=== PATIENT | female | born 1960 | race Caucasian/White ===

== ENCOUNTER → 2017-12-19 | Outpatient (CLI) | payer BC ==
[~2017-12-19] MED LIST: ALPR.5T PO; ASPI1TAB PO; MULT-608 PO; SRTR100T PO
--- NOTE | 2017-12-19 15:59 | Diagnostic Imaging Report ---
PROCEDURE: CT sinuses without contrast TECHNIQUE: Multiple contiguous axial images were obtained through the sinuses without the use of intravenous contrast. Coronal and sagittal reformations were then performed. INDICATION: Headaches for six months. FINDINGS: The frontal sinus is clear. Ethmoid air cells and sphenoid sinus are clear. Bilateral maxillary sinuses are clear. No mucosal thickening or air-fluid levels are seen. The ostiomeatal units are patent bilaterally. Nasal septum is midline. The mastoids are well aerated. Postsurgical changes of aneurysm repair are identified at the [place]. IMPRESSION: No evidence of sinusitis. Dictated by: Dictated on workstation # [id number]
== END ==
LOC: RAD 15:26
PROVIDERS: ATTEND Otolaryngology Otolaryngology/Facial Plastic Surgery
DX: R51 Headache (principal); Z86.79 Personal history of other diseases of the circulatory system
CPT/HCPCS: 70486

== ENCOUNTER → 2020-01-25 | Outpatient (CLI) | payer BC ==
--- NOTE | 2020-01-25 08:24 | Diagnostic Imaging Report ---
INDICATION: Follow-up fracture COMPARISON: None available TECHNIQUE: 3 radiographs of right ankle dated 01/25/2020 FINDINGS: Essentially nondisplaced fracture through the tip of the lateral malleolus is identified. Persisting fracture plane is noted. No dense osseous bridging. No additional acute fracture. No dislocation. The talar dome is unremarkable. Ankle mortise is symmetric. Post surgical changes within the distal 1st metatarsal. No suspicious radiopaque foreign body. IMPRESSION: Nondisplaced fracture involving the tip of the lateral malleolus. Given appearance, this is favored to be subacute in nature. Dictated by: Dictated on workstation # [id number]
== END ==
LOC: RAD FS 08:02
PROVIDERS: ATTEND Nurse Practitioner
DX: S82.831D Other fracture of upper and lower end of right fibula, subsequent encounter for closed fracture with routine healing (principal); Z98.890 Other specified postprocedural states
CPT/HCPCS: 73610

== ENCOUNTER → 2020-06-01 | Outpatient (CLI) | payer BC ==
--- NOTE | 2020-06-01 10:15 | Diagnostic Imaging Report ---
INDICATION: Chronic neck pain. Time of exam 9:50 AM Three-view cervical spine were obtained. There is slight reversal normal cervical lordotic curvature. There is significant degenerative disc disease at C5-C6 and C6-C7 levels with disc space narrowing and marginal spurring. No fractures are identified. Prevertebral tissues are normal. Odontoid is intact. IMPRESSION: Lower cervical spondylosis. No acute bony abnormality is detected. Dictated by: Dictated on workstation # [id number]
== END ==
LOC: RAD FS 09:34
PROVIDERS: ATTEND Chiropractor
DX: M47.812 Spondylosis without myelopathy or radiculopathy, cervical region (principal); R51 Headache
CPT/HCPCS: 72040

== ENCOUNTER 2020-07-02 17:28 | Emergency (ER) | payer BC ==
[~2020-07-02] VITALS: Ht 175.2 cm; Wt 66.0 kg
--- OUTSIDE RECORDS SUMMARY | 2020-07-02 17:34 | XMS REPORT | Continuity of Care Document ---
Author Organization Unknown Address Unknown Phone Unavailable Allergies Active Description Code Type Severity Reaction Onset Reported/Identified Relationship to Patient Clinical Status Yes No Known Drug Allergies [id number] Drug Allergy Unknown N/A 10/06/2012 Medications There is no data. Problems Date Dx Coded Attending Type Code Diagnosis Diagnosed By 12/22/2017 TREY KEENAN MD Ot R51 HEADACHE 12/22/2017 TREY KEENAN MD Ot Z86.79 PERSONAL HISTORY OF OTHER DISEASES OF 12/31/2017 TREY KEENAN MD Ot R51 HEADACHE 12/31/2017 TREY KEENAN MD Ot Z86.79 PERSONAL HISTORY OF OTHER DISEASES OF 02/10/2020 CHARANJIT NAVARRO Ot S82.831D OTH FX UPR LOW END R FIBULA, SUBS FOR 02/10/2020 CHARANJIT NAVARRO YOUTH SPECIALIST Ot Z98.890 OTHER SPECIFIED POSTPROCEDURAL STATES 05/03/2020 TREY KEENAN MD Ot R51 HEADACHE 05/03/2020 TREY KEENAN MD P Ot Z86.79 PERSONAL HISTORY OF OTHER DISEASES OF 05/03/2020 CHARANJIT NAVARRO Ot S82.831D OTH FX UPR LOW END R FIBULA, SUBS FOR 05/03/2020 CHARANJIT NAVARRO Ot Z98.890 OTHER SPECIFIED POSTPROCEDURAL STATES 05/04/2020 TREY KEENAN MD Ot R51 HEADACHE 05/04/2020 TREY KEENAN MD P Ot Z86.79 PERSONAL HISTORY OF OTHER DISEASES OF TH 05/04/2020 CHARANJIT NAVARRO Ot S82.831D OTH FX UPR LOW END R FIBULA, SUBS FOR 05/04/2020 CHARANJIT NAVARRO Ot Z98.890 OTHER SPECIFIED POSTPROCEDURAL STATES 05/12/2020 TREY KEENAN MD Ot R51 HEADACHE 05/12/2020 TREY KEENAN MD P Ot Z86.79 PERSONAL HISTORY OF OTHER DISEASES OF 05/12/2020 CHARANJIT NAVARRO YOUTH SPECIALIST Ot S82.831D OTH FX UPR LOW END R FIBULA, SUBS FOR 05/12/2020 CHARANJIT NAVARRO Ot Z98.890 OTHER SPECIFIED POSTPROCEDURAL STATES 06/01/2020 TREY KEENAN MD Ot R51 HEADACHE 06/01/2020 TREY KEENAN MD Ot Z86.79 PERSONAL HISTORY OF OTHER DISEASES OF TH 06/01/2020 CHARANJIT NAVARRO Ot S82.831D OTH FX UPR LOW END R FIBULA, SUBS FOR 06/01/2020 CHARANJIT NAVARRO Ot Z98.890 OTHER SPECIFIED POSTPROCEDURAL STATES 06/06/2020 LONG DC, BERNA S Ot M47.812 SPONDYLOSIS W/O MYELOPATHY OR RADICULOPA 06/06/2020 LONG DC, BERNA S Ot R51 HEADACHE Procedures There is no data. Results There is no data. Encounters ACCT No. Visit Date/Time Discharge Status Pt. Type Provider Facility Loc./Unit Complaint [id number] 06/01/2020 09:34:00 020 23:59:59 CLS Outpatient BERNA FIGUEROA DC [facility] FS NECK PAIN WITH HEADACHE [id number] 01/25/2020 08:02:00 020 23:59:59 CLS Outpatient CHARANJIT NAVARRO [facility] FS S82.831A [id number] 12/19/2017 15:26:00 018 23:59:59 CLS Outpatient RTEY KEENAN MD [facility] HEADACHES, HX BRAIN ANEURYSM,SINUSITIS
[2020-07-02] MEDS ORDERED: fentaNYL INJECTION 100 MCG/2 ML AMP IVP ONE (17:45)
[2020-07-02] MEDS ORDERED: ONDANSETRON 4 MG/2 ML (SDV) Z0FRAN IVP ONE (17:45)
[2020-07-02] MEDS ORDERED: diphenhydrAMINE 50 MG/ML INJ (BENADRYL) IVP ONE (17:45)
--- NOTE | 2020-07-02 17:49 | ED Headache ---
General Chief Complaint: Head/Cervical Problems Stated Complaint: HEADACHE;TINGLING TOES History of Present Illness Date Seen by Provider: Jul 02, 2020 Time Seen by Provider: 17:45 Initial Comments 59-year-old female states she has a history of a cerebral aneurysm status post coil placement she does get migraines sometimes associated with nausea and vomiting last night she developed a bilateral frontal and vertex headache with nausea and vomiting she's vomited 4 times there's een no fall or injury she has not had fever or other active illness she has used Maxalt and a nasal spray for the [place] without significant improvement she went to the clinic and was asked about numbness or tingling recalls her left toes were tingling last night so there was concern about possible stroke and she was sent to the ER grossly it would appear the patient has no neurologic deficit is not in any acute distress alert and oriented gait normal (DELFIN WHITE MD) Allergies and Home Medications Allergies Coded Allergies: No Known Drug Allergies (Unverified , 10/06/12) Home Medications Alprazolam 0.5 Mg Tablet, 1 TAB PO NEEDED, (Reported) FOR ANXIETY Aspirin/Acetaminophen/Caffeine 1 Tab Tablet, 1 TAB PO NEEDED, (Reported) Multivitamins 1 Tab Tablet, 1 TAB PO DAILY, (Reported) Sertraline Hcl 100 Mg Tablet, 150 MG PO HS, (Reported) Patient Home Medication List Home Medication List Reviewed: Yes (DELFIN WHITE MD) Review of Systems Review of Systems Constitutional: no symptoms reported; No fever Eyes: No Symptoms Reported Ears, Nose, Mouth, Throat: no symptoms reported Respiratory: no symptoms reported Cardiovascular: no symptoms reported Gastrointestinal: nausea, vomiting Genitourinary: no symptoms reported Musculoskeletal: other ([place] only) Skin: no symptoms reported (DELFIN WHITE MD) Past Vrdkoyo-Yslnzw-Tspfil Hx Past Medical History Reproductive Disorders: No (DELFIN WHITE MD) Physical Exam Vital Signs Vital Signs - First Documented 07/02/20 17:30 Temp 36.3 Pulse 68 Resp 16 B/P (MAP) 136/82 (100) Pulse Ox 99 O2 Delivery Room Air (ANISH ISABEL JR, MD) Vital Signs Capillary Refill : (DELFIN WHITE MD) Height, Weight, BMI Height: '" Weight: lbs. oz. kg; BMI Method: General Appearance: no apparent distress HEENT: TMs normal, pharynx normal Neck: supple, other (no hint of meningismus) Cardiovascular: regular rate, rhythm Respiratory: lungs clear Gastrointestinal: non tender, soft Extremities: normal inspection Psychiatric: alert, oriented x 3 Motor/Sensory: no motor deficit, no sensory deficit, other (no objective finding of any kind of neurologic abnormality) (DELFIN WHITE MD) Progress/Results/Core Measures Results/Orders Medications Given in ED Current Medications Medications Dose Ordered Sig/Kody Route Start Time Stop Time Status Last Admin Dose Admin Diphenhydramine HCl 25 mg ONCE ONCE IVP 07/02/20 17:45 07/02/20 17:46 DC 07/02/20 18:01 25 MG Fentanyl Citrate 50 mcg ONCE ONCE IVP 07/02/20 17:45 07/02/20 17:46 DC 07/02/20 18:01 50 MCG Ondansetron HCl 4 mg ONCE ONCE IVP 07/02/20 17:45 07/02/20 17:46 DC 07/02/20 18:00 4 MG (ANISH ISABEL JR, MD) Vital Signs/I&O 07/02/20 17:30 Temp 36.3 Pulse 68 Resp 16 B/P (MAP) 136/82 (100) Pulse Ox 99 O2 Delivery Room Air (ANISH ISABEL JR, MD) Progress Progress Note : Progress Note CT head pending Will give IV (fentanyl for now as it might be best to avoid Toradol until we know the CT is normal) Isabel (DELFIN WHITE MD) Transfer of Care Time: 18:00 Care transferred to: Dr. Isabel to seem care at shift change CT head pending (DELFIN WHITE MD) Departure Communication (Admissions) Patient improved ridicule home. (ANISH ISABEL JR, MD) Impression Primary Impression: Migraine Qualified Codes: G43.909 - Migraine, unspecified, not intractable, without status migrainosus Disposition: HOME, SELF-CARE Condition: Stable Departure-Patient Inst. Referrals: DREW RIVERA MD (PCP/Family) Primary Care Physician Patient Instructions: Headache, Adult (DC) DELFIN WHITE MD Jul 02, 2020 17:49 ANISH ISABEL JR, MD Jul 02, 2020 18:37
--- NOTE | 2020-07-02 18:15 | Diagnostic Imaging Report ---
INDICATION: Migraine headache since yesterday, history of aneurysm coiling. TECHNIQUE: Multiple contiguous axial images were obtained through the brain without the use of intravenous contrast. Auto Exposure Controls were utilized during the CT exam to meet ALARA standards for radiation dose reduction. COMPARISON: There is no previous study for comparison. FINDINGS: There are no extra-axial fluid collections. No intracranial hemorrhage. No intracranial mass or mass effect. No midline shift. The ventricles are normal in size and position. Prior embolization coils are visualized over the left side of the [place] and carotid siphon. There is no acute appearing intracranial abnormality. Calvarial windows show no fracture. Visualized portions of the mastoid air cells and sinuses are unremarkable. IMPRESSION: Evidence of previous coil embolization with coils overlying the left side of the [place] and carotid siphon. No acute hemorrhage, mass effect or acute appearing finding. Dictated by: Dictated on workstation # [id number]
[2020-07-02 18:43] VITALS: BP 136/82
== END 2020-07-02 18:39 | disposition home or self-care (01) ==
LOC: EDUNIT# 17:28 → ER FS 17:30
DX: G43.909 Migraine, unspecified, not intractable, without status migrainosus (principal); Z79.82 Long term (current) use of aspirin; Z79.899 Other long term (current) drug therapy; R20.2 Paresthesia of skin; Z86.79 Personal history of other diseases of the circulatory system
CPT/HCPCS: 70450

== ENCOUNTER → 2021-05-01 | Outpatient (CLI) | payer BC ==
--- NOTE | 2021-05-01 12:33 | Diagnostic Imaging Report ---
INDICATION: Fracture. COMPARISON: None available. TECHNIQUE: Three radiographs of the left knee dated 05/01/2021. FINDINGS: No acute fracture or dislocation. No destructive osseous process. Minimal medial joint space narrowing. Small knee joint effusion. Prepatellar soft tissue swelling. Lucencies are noted associated with the undersurface of the patella. IMPRESSION: No acute osseous abnormality with mild degenerative changes. Lucencies associated with undersurface of the patella, likely related to subchondral cyst formation. Prepatellar and infrapatellar soft tissue swelling with a small knee joint effusion present. Should symptoms persist, further evaluation with MRI of the knee could be considered. Dictated by: Dictated on workstation # [id number]
== END ==
LOC: RAD FS 09:28
PROVIDERS: ATTEND Nurse Practitioner
DX: S82.035A Nondisplaced transverse fracture of left patella, initial encounter for closed fracture (principal); M17.12 Unilateral primary osteoarthritis, left knee; M25.462 Effusion, left knee; X58.XXXA Exposure to other specified factors, initial encounter
CPT/HCPCS: 73562

== ENCOUNTER → 2021-05-22 | Outpatient (CLI) | payer BC ==
--- NOTE | 2021-05-22 10:37 | Diagnostic Imaging Report ---
INDICATION: Knee pain. Injury. Fracture follow-up. COMPARISON: 05/01/2021 FINDINGS: 3 radiographic views of left knee were obtained. Again identified are prominent subchondral lucencies of the patella. These are again favored to be on a degenerative basis and pharmaceutical specialty representative subchondral cystic formation. No definite acute patellar fracture is seen. Remaining osseous structures are intact. Joint spaces are maintained. Note is again made of small suprapatellar joint effusion. IMPRESSION: 1. No new acute fracture or dislocation left knee. 2. Redemonstration subchondral lucencies in the articular surface of the patella. Again, these are favored to be degenerative in nature. Dictated by: Dictated on workstation # [id number]
== END ==
LOC: RAD FS 09:28
PROVIDERS: ATTEND Nurse Practitioner
DX: S82.035D Nondisplaced transverse fracture of left patella, subsequent encounter for closed fracture with routine healing (principal); X58.XXXD Exposure to other specified factors, subsequent encounter
CPT/HCPCS: 73562

== ENCOUNTER 2022-04-18 21:35 | Emergency (ER) | payer BC ==
[2022-04-18] MEDS ORDERED: diphenhydrAMINE 50 MG/ML INJ (BENADRYL) IM ONE (21:45)
[2022-04-18] MEDS ORDERED: KETOROLAC 30 MG/ML VIAL IM ONE (21:45)
[2022-04-18] MEDS ORDERED: DROPERIDOL 5 MG/2 ML (INAPSINE) ED ONLY! IM ONE (21:45)
[2022-04-18] MEDS ORDERED: PROCHLORPERAZINE 10 MG/2ML INJ (COMPAZINE) IM ONE (21:45)
[2022-04-18] MEDS ORDERED: ACETAMINOPHEN 500 MG TAB (TYLENOL) PO ONE (21:45)
--- NOTE | 2022-04-18 21:50 | ED Headache ---
General Chief Complaint: Head/Cervical Problems Stated Complaint: HADACHE/NAUSEA Nursing Triage Note: Pt complaining of a migraine that started Friday night. Pt seen PCP today and was given 3 shots. Pt states the medications helped for a little while but now her migraine is back Source: patient Exam Limitations: no limitations History of Present Illness Date Seen by Provider: April 18, 2022 Time Seen by Provider: 21:39 Initial Comments 61-year-old female with past medical history of chronic migraines coming in due to one of her chronic migraines. She says they typically happen roughly 4 times a month, or in the front of her head, this months consistent with that. This 1 started on Friday, slow in onset, she presented to her PCP earlier today and she got a couple injections IM which did help somewhat, but it continues. Denies any neck stiffness, fever, vision changes, voice changes, weakness, numbness, or any other concerns. She is otherwise denying any other acute complaints. Denies any head trauma as well. Allergies and Home Medications Allergies Coded Allergies: No Known Drug Allergies (Unverified , 10/06/12) Patient Home Medication List Home Medication List Reviewed: Yes Alprazolam (Xanax) 0.5 Mg Tablet, 1 TAB PO NEEDED, (Reported) Entered as Reported by: MATA AQUINO on 10/06/12938 Aspirin/Acetaminophen/Caffeine (Excedrin Caplet) 1 Tab Tablet, 1 TAB PO NEEDED, (Reported) Entered as Reported by: MATA AQUINO on 10/06/12938 Multivitamins (Multiple Vitamin) 1 Tab Tablet, 1 TAB PO DAILY, (Reported) Entered as Reported by: MATA AQUINO on 10/06/12938 Sertraline Hcl (Zoloft) 100 Mg Tablet, 150 MG PO HS, (Reported) Entered as Reported by: MATA AQUINO on 10/06/12938 Review of Systems Review of Systems Constitutional: No chills, No fever Eyes: Denies Blurred Vision Ears, Nose, Mouth, Throat: no symptoms reported Cardiovascular: no symptoms reported Gastrointestinal: no symptoms reported Genitourinary: no symptoms reported Musculoskeletal: no symptoms reported Skin: no symptoms reported Psychiatric/Neurological: Headache All Other Systems Reviewed Negative Unless Noted: Yes Past Oqwpdsf-Xwfprf-Ndykyb Hx Patient Social History Tobacco Use?: No Substance use?: No Alcohol Use?: No Seasonal Allergies Seasonal Allergies: No Past Medical History Surgeries: Yes (endovascular coiling for aneurysm) Hysterectomy, Tonsillectomy Respiratory: No Cardiac: Yes Aneurysm, High Cholesterol Neurological: Yes Headaches /Migraines Reproductive Disorders: No Genitourinary: No Gastrointestinal: No Musculoskeletal: No Endocrine: No HEENT: No Cancer: No Psychosocial: Yes Sleep Difficulties, Anxiety, Depression Integumentary: No Blood Disorders: No Physical Exam Vital Signs Vital Signs - First Documented 04/18/22 21:41 Temp 36.5 Pulse 78 Resp 18 B/P (MAP) 143/68 (93) Pulse Ox 98 O2 Delivery Room Air Capillary Refill : Less Than 3 Seconds Height, Weight, BMI Height: '" Weight: lbs. oz. kg; 21.00 BMI Method: General Appearance: WD/WN, no apparent distress HEENT: PERRL/EOMI, normal ENT inspection, pharynx normal Neck: non-tender, full range of motion, supple, normal inspection Cardiovascular: regular rate, rhythm, no edema, no murmur Respiratory: chest non-tender, lungs clear, normal breath sounds, no respiratory distress, no accessory muscle use Gastrointestinal: normal bowel sounds, non tender, soft; No distended, No gua rding, No rebound Back: normal inspection Extremities: normal range of motion, non-tender, normal inspection, no pedal edema, no calf tenderness, normal capillary refill Psychiatric: alert, oriented x 3 [place] Nerves: normal hearing, normal speech, PERRL Coordination/Gait: normal finger to nose, normal gait Motor/Sensory: no motor deficit, no sensory deficit, no pronator drift Skin: normal color, warm/dry Lymphatic: no adenopathy Progress/Results/Core Measures Results/Orders My Orders Orders - MARIUM GRACE MD Ketorolac Injection (Toradol Injection) (04/18/22 21:45) Diphenhydramine Injection (Benadryl Inje (04/18/22 21:45) Prochlorperazine Injection (Compazine In (04/18/22 21:45) Dexamethasone Oral Soln (Ed) (Decadron I (04/18/22 21:45) Acetaminophen Tablet (Tylenol Tablet) (04/18/22 21:45) Droperidol Inj (Ed Only) (Inapsine Inj ( (04/18/22 21:45) Dexamethasone Tablet (Decadron Tablet) (04/18/22 22:02) Medications Given in ED Current Medications Medications Dose Ordered Sig/Kody Route Start Time Stop Time Status Last Admin Dose Admin Acetaminophen 1,000 mg ONCE ONCE PO 04/18/22 21:45 04/18/22 21:49 DC 04/18/22 22:08 1,000 MG Dexamethasone 6 mg STK-MED ONCE .ROUTE 04/18/22 22:02 04/18/22 22:04 DC 04/18/22 22:09 6 MG Diphenhydramine HCl 50 mg ONCE ONCE IM 04/18/22 21:45 04/18/22 21:49 DC 04/18/22 22:10 50 MG Droperidol 2.5 mg ONCE ONCE IM 04/18/22 21:45 04/18/22 21:49 DC 04/18/22 22:09 2.5 MG Ketorolac Tromethamine 15 mg ONCE ONCE IM 04/18/22 21:45 04/18/22 21:49 DC 04/18/22 22:09 15 MG Prochlorperazine Edisylate 10 mg ONCE ONCE IM 04/18/22 21:45 04/18/22 21:49 DC 04/18/22 22:09 10 MG Vital Signs/I&O 04/18/22 04/18/22 21:41 22:19 Temp 36.5 36.5 Pulse 78 78 Resp 18 18 B/P (MAP) 143/68 (93) 143/68 Pulse Ox 98 98 O2 Delivery Room Air Room Air Blood Pressure Mean: 93 Progress Progress Note : Progress Note 61-year-old female with above history coming in due to one of her chronic migraines. ABCs were intact and vital signs were stable on presentation. Physical exam reassuring including a complete neurologic exam being normal. She was given an IM cocktail of medicines for headache. She is feeling better and would like to go home. I believe she is stable for discharge with outpatient follow-up. She was sent home with strict return precautions Departure Impression Primary Impression: Migraine Qualified Codes: G43.001 - Migraine without aura, not intractable, with status migrainosus Disposition: HOME, SELF-CARE Condition: Stable Departure-Patient Inst. Decision time for Depature: 22:23 Referrals: SELF,DREW CRAIG (PCP/Family) Primary Care Physician Patient Instructions: Migraines (DC) Add. Discharge Instructions: Try to get some sleep tonight, and if not feeling better he can call your doctor again or come back to the ER. Try to drink plenty of fluids tomorrow. Work/School Note: Work Release Form Date Seen in the Emergency Department: April 18, 2022 Return to Work: April 20, 2022 Restrictions: No Restrictions MARIUM GRACE MD April 18, 2022 21:50
[2022-04-18] MEDS ORDERED: dexAMETHasone 6 MG TAB (DECADRON) ONE (22:02)
[2022-04-18 22:19] VITALS: BP 143/68
== END 2022-04-18 22:25 | disposition home or self-care (01) ==
LOC: EDUNIT# 21:35 → ER FS 21:37
DX: G43.701 Chronic migraine without aura, not intractable, with status migrainosus (principal)
CPT/HCPCS: 99284